=== PATIENT | female | born 1965 | race Caucasian/White ===

== ENCOUNTER 2017-02-18 17:30 | Emergency (ER) | payer MEDICAID ==
[2017-02-18 17:37] VITALS: BMI 25.8
[2017-02-18 17:54] VITALS: BP 118/73; PULSE 54; TEMP 98.2; O2SAT 100
[2017-02-18 18:09] VITALS: RESP 15
[2017-02-18] MEDS ORDERED: Sodium Chloride 0.9% 1,000 ML IV STA (18:22)
[2017-02-18 19:01] LABS: BASO # 0.01 K/mm3 (0.0-2.0); BASO % 0.2 % (0.0-3.0); EOS # 0.2 (0.0-0.7); EOS % 3.4 % (1.5-5.0); GRAN # 2.82 (1.4-6.5); GRAN % 56.9 % (50.0-68.0); HEMATOCRIT 37.6 % (36.0-48.0); LYMPH # 1.7 (1.2-3.4); LYMPH % 33.7 % (22.0-35.0); MEAN CELL VOLUME 85.5 fl (80.0-105.0); MEAN CORPUSCULAR HEMOGLOBIN 28.6 pg (25.0-35.0); MEAN CORPUSCULAR HGB CONC 33.5 g/dl (31.0-37.0); MEAN PLATELET VOLUME 9.3 fl (7.0-11.0); MONO # 0.3 (0.1-0.6); MONO % 5.8 % (1.0-6.0); RED CELL DISTRIBUTION WIDTH 12.9 % (11.5-14.5)
[2017-02-18 19:13] LABS: INR 1.06 (0.93-1.08); PARTIAL THROMBOPLASTIN TIME 28.2 Seconds (23.7-30.8)
[2017-02-18 19:15] LABS: ALB/GLOB RATIO 1.4 (1.1-1.8); ALKALINE PHOSPHATASE 68 U/L (38-126); ALT/SGPT 25 U/L (7-56); AST/SGOT 29 U/L (14-36); BILIRUBIN,TOTAL 0.7 mg/dL (0.2-1.3); BLOOD UREA NITROGEN 17 mg/dL (7-21); CALCIUM 9.3 mg/dL (8.4-10.5); CARBON DIOXIDE 27 mmol/L (21-33); CHLORIDE 106 mmol/L (98-107); D DIMER 0.19 mg/L FEU (0-0.50); GFR AFRICAN-AMERICAN > 60; GLUCOSE,RANDOM 82 mg/dL (70-110); LIPASE 74 U/L (23-300); MAGNESIUM 2.2 mg/dL (1.7-2.2); POTASSIUM 4.3 mmol/L (3.6-5.0); SODIUM 143 mmol/L (132-148); TOTAL PROTEIN 7.4 g/dL (5.8-8.3)
[2017-02-18 19:19] LABS: URINE BILIRUBIN NEGATIVE (NEGATIVE); URINE BLOOD NEGATIVE (NEGATIVE); URINE GLUCOSE (UA) NEGATIVE (NEGATIVE); URINE KETONE NEGATIVE (NEGATIVE); URINE LEUKOCYTE ESTERASE TRACE Leu/uL (NEGATIVE); URINE PROTEIN NEGATIVE mg/dL (<30 mg/dL); URINE UROBILINOGEN 0.2 E.U./dL (<1 E.U./dL)
[2017-02-18 19:22] LABS: URINE APPEARANCE CLEAR (CLEAR); URINE COLOR YELLOW (YELLOW)
[2017-02-18] MEDS ORDERED: Iohexol 350 MG/100 ML VIAL ONE (19:24)
[2017-02-18 19:27] LABS: TROPONIN I 0.01 ng/mL
[2017-02-18 19:27] LABS: URINE RBC NEGATIVE /hpf (0-2)
[2017-02-18 19:28] LABS: URINE BACTERIA FEW (NEG)
--- NOTE | 2017-02-18 20:41 | US ---
EXAM: US Abdomen Complete EXAM DATE/TIME: 02/18/2017 6:23 PM CLINICAL HISTORY: The patient age is 51 years old and is female; Pain; Abdominal pain; Epigastric; Additional info: Upper abd pain Facility exam id and description: Us abd abdomen complete TECHNIQUE: Real-time ultrasound of the abdomen (complete) with image documentation. COMPARISON: No relevant prior studies available. FINDINGS: Liver: The liver is increased in echogenicity, most commonly due to fatty infiltration, but other chronic liver diseases may have a similar appearance. The liver measures 15.0 x 13.4 cm. Gallbladder: Isoechoic sludge is visualized within the gallbladder. No shadowing gallstones are identified. There is no significant gallbladder wall thickening. Common bile duct: The common bile duct measures 4.5 mm in diameter, which is within the normal range. Pancreas: There is suboptimal evaluation of the tail of the pancreas due to bowel gas. No focal abnormality is seen within the visualized head or body of the pancreas. Kidneys: The right kidney measures 9.9 x 3.6 x 4.7 cm. The left kidney measures 9.2 x 4.7 x 5.1 cm. No shadowing stones. No hydronephrosis. Spleen: There is borderline splenomegaly. The spleen measures 12.8 x 4.7 cm and is normal in echotexture. Aorta: The visualized abdominal aorta is patent. There is limited evaluation of the abdominal aorta. Inferior vena cava: The visualized IVC is patent. IMPRESSION: 1. The liver is increased in echogenicity, most commonly due to fatty infiltration, but other chronic liver diseases may have a similar appearance. 2. Isoechoic sludge is visualized within the gallbladder. No shadowing gallstones are identified. 3. There is borderline splenomegaly. 4. Additional findings described above.
--- NOTE | 2017-02-18 20:54 | CT ---
EXAM: CT Abdomen and Pelvis With Intravenous Contrast EXAM DATE/TIME: 02/18/2017 6:22 PM CLINICAL HISTORY: The patient age is 51 years old and is female; Pain; Abdominal pain; Generalized Facility exam id and description: Ct abdpelciv abd pelvis iv contrast only TECHNIQUE: Axial computed tomography images of the abdomen and pelvis with intravenous contrast. All CT scans at this facility use one or more dose reduction techniques, viz.: automated exposure control; ma/kV adjustment per patient size (including targeted exams where dose is matched to indication; i.e. head); or iterative reconstruction technique. Coronal and sagittal reformatted images were created and reviewed. CONTRAST: 95 mL of OMNI 350 administered intravenously. COMPARISON: No relevant prior studies available. FINDINGS: Lower thorax: There is a minimal pericardial effusion. Dependent atelectatic change is identified at the lung bases posteriorly. Mild atelectasis is visualized within the right middle lobe. ABDOMEN: Liver: The liver measures 19.3 cm in length, consistent with mild hepatomegaly. No hepatic mass is visualized. There is mild intrahepatic biliary dilatation. Gallbladder and bile ducts: No discrete gallstones are identified. A cleft is visualized within the gallbladder. Pancreas: Normal contour, without acute peripancreatic stranding. Spleen: There is borderline splenomegaly. The spleen measures 12.2 cm in length. Adrenals: No mass. Kidneys and ureters: An accessory retroaortic left renal vein is visualized. Stomach and bowel: No obstruction. No mucosal thickening. Appendix: No findings to suggest acute appendicitis. PELVIS: Bladder: No mass. Reproductive: Unremarkable as visualized. ABDOMEN and PELVIS: Intraperitoneal space: No free air. Bones/joints: There is a broad-based disc protrusion at L5-S1 with mild narrowing of the thecal sac and narrowing of both lateral recesses. A vacuum disc phenomenon is visualized at L5-S1. Soft tissues: There is mild herniation of fat into the umbilicus. Vasculature: There is no aneurysm or dissection of the aorta. Lymph nodes: There is an enlarged right inguinal lymph node measuring 2.3 cm in length, nonspecific as to etiology. There is no significant retroperitoneal or intrapelvic lymphadenopathy. IMPRESSION: 1. There is borderline splenomegaly. Mild hepatomegaly. 2. There is mild intrahepatic biliary dilatation. Correlation with serum bilirubin is recommended. 3. There is an enlarged right inguinal lymph node measuring 2.3 cm in length, nonspecific as to etiology. 4. There is a broad-based disc protrusion at L5-S1 with mild narrowing of the thecal sac and narrowing of both lateral recesses. 5. There is a minimal pericardial effusion. 6. Incidental/non-acute findings are described above.
--- NOTE | 2017-02-18 21:30 | ED PDOC ---
Arrival/HPI - General Chief Complaint: Shortness Of Breath Time Seen by Provider: 02/18/17 17:37 Historian: Patient - History of Present Illness Narrative History of Present Illness (Text): 02/18/17 21:43 51 y.o. female whose past medical history includes GERD denies any significant past medical history who says that she was at work when she began to develop significant sob suddenly and then developed lower substernal chest pain that was worse with inspiration. The pain and sob worsened, and the patient began to feel that she was about to pass out. She barely got to her pmd's office, who had her sent to the ED for further eval. She says she feels better with oxygen on. No headache or visual changes or n/v; she says she does feel some epigastric pain and had some back pain associated with the epigastric pain earlier. No urinary symptoms or fever. Past Medical History - Infectious Disease Hx of Infectious Diseases: None - Cardiac Hx Cardiac Disorders: No - Pulmonary Hx Respiratory Disorders: No - Neurological Hx Alzheimer's Disease: No - HEENT Hx HEENT Disorder: No - Renal Hx Renal Disorder: No - Endocrine/Metabolic Hx Endocrine Disorders: No - Hematological/Oncological Hx Blood Disorders: Yes Hx Hepatitis C: Yes (hx of) - Integumentary Hx Dermatological Disorder: No - Musculoskeletal/Rheumatological Hx Musculoskeletal Disorders: No - Gastrointestinal Hx Gastrointestinal Disorders: No - Genitourinary/Gynecological Hx Genitourinary Disorders: No - Psychiatric Hx Psychophysiologic Disorder: No Hx Substance Use: No - Anesthesia Hx Anesthesia: No Family/Social History Family/Social History: Unknown Family HX Smoking Status: Never Smoked Hx Alcohol Use: No Hx Substance Use: No Allergies/Home Meds Allergies/Adverse Reactions: Allergies No Known Allergies Allergy (Verified 02/18/17 17:37) Review of Systems - Review of Systems Constitutional: absent: Fevers Eyes: absent: Vision Changes ENT: Normal Respiratory: SOB. absent: Cough Cardiovascular: Chest Pain, Other (near syncope) Gastrointestinal: Abdominal Pain (epigastric pain), Diarrhea (the past three days). absent: Nausea, Vomiting Genitourinary Female: Normal Musculoskeletal: Back Pain (associated with epigastric pain earlier) Skin: Normal Neurological: Dizziness. absent: Headache Endocrine: Normal Hemo/Lymphatic: Normal Psychiatric: Normal Physical Exam Vital Signs Temp Pulse Resp BP Pulse Ox 02/18/17 18:00 15 100 02/18/17 17:54 98.2 F 54 L 18 118/73 100 Temperature: Afebrile Blood Pressure: Normal Pulse: Regular Respiratory Rate: Normal Appearance: Positive for: Well-Appearing, Non-Toxic, Comfortable Pain Distress: None Mental Status: Positive for: Alert and Oriented X 3 - Systems Exam Head: Present: Atraumatic, Normocephalic Pupils: Present: PERRL Conjunctiva: Present: Normal Mouth: Present: Moist Mucous Membranes Pharnyx: Present: Normal. No: ERYTHEMA, EXUDATE Neck: Present: Normal Range of Motion Respiratory/Chest: Present: Clear to Auscultation, Good Air Exchange. No: Respiratory Distress, Accessory Muscle Use Cardiovascular: Present: Regular Rate and Rhythm, Normal S1, S2. No: Murmurs Abdomen: Present: Tenderness (ttp in the epigastric area and RUQ.), Normal Bowel Sounds. No: Distention, Peritoneal Signs Back: Present: Normal Inspection Upper Extremity: Present: Normal Inspection. No: Cyanosis, Edema Lower Extremity: Present: Normal Inspection. No: Edema Neurological: Present: GCS=15, CN II-XII Intact, Speech Normal Skin: Present: Warm, Dry, Normal Color. No: Rashes Psychiatric: Present: Alert, Oriented x 3, Normal Insight, Normal Concentration Medical Decision Making ED Course and Treatment: 02/18/17 21:50 51 y.o. female with chest pain, sob, and near syncope, now feeling better. Differential: ACS vs PE vs vasovagal vs GI etiology Progress Notes: 02/18/2017 20:41 Abdomen Ultrasound IMPRESSION: 1. The liver is increased in echogenicity, most commonly due to fatty infiltration, but other chronic liver diseases may have a similar appearance. 2. Isoechoic sludge is visualized within the gallbladder. No shadowing gallstones are identified. 3. There is borderline splenomegaly. 4. Additional findings described above. Dictator: Yash Martinez MD 02/18/2017 20:53 Abdomen/Pelvis CT IMPRESSION: 1. There is borderline splenomegaly. Mild hepatomegaly. 2. There is mild intrahepatic biliary dilatation. Correlation with serum bilirubin is recommended. 3. There is an enlarged right inguinal lymph node measuring 2.3 cm in length, nonspecific as to etiology. 4. There is a broad-based disc protrusion at L5-S1 with mild narrowing of the thecal sac and narrowing of both lateral recesses. 5. There is a minimal pericardial effusion. 6. Incidental/non-acute findings are described above. Dictator: Yash Martinez MD 02/18/17 22:02 Patient with noted history with imaging results as above; labs are unremarkable. EKG however showing GERRY (with no reciprocal changes), more consistent with possible pericarditis. CE and d-dimer are normal and CXR is uremarkable. Abdominal sono done for abd pain showing sludge but no CBD dilatation. and normal GB wall; no evidence of cholecystitis. CT with intrahepatic dilatation but normal bili; previously treated for hepatitis. Inguinal adenopathy is noted, but patient denies any weight loss, night sweats of fever and not palpable on exam - informed patient of finding to f/u pmd. Herniated disc also noted; patient says has a history of intermittent radicular back pain but no weakness or acute findings. There is however a possible small pericardial effusion on CT scan, which is association with the EKG findings may represent pericarditis. Given her sob, cp, and near syncope earlier, the patient therefore needs an echo and placement on telemetry for further evaluation. She has been informed of this but is refusing to stay in the hospital, despite understanding the risks including heart disease and . She is instead leaving against medical advice, understanding the risks. Will recommend nsaids, given possible nsaids. - Lab Interpretations Lab Results: 02/18/17 18:45 02/18/17 18:45 Lab Results 02/18/17 19:00: Urine Color Yellow, Urine Appearance Clear, Urine pH 6.0, Ur Specific Deary <= 1.005, Urine Protein Negative, Urine Glucose (UA) Negative, Urine Ketones Negative, Urine Blood Negative, Urine Nitrate Negative, Urine Bilirubin Negative, Urine Urobilinogen 0.2, Ur Leukocyte Esterase Trace H, Urine RBC Negative, Urine WBC 2 - 5, Ur Epithelial Cells 4 - 5, Urine Bacteria Few 02/18/17 18:45: Sodium 143, Potassium 4.3, Chloride 106, Carbon Dioxide 27, Anion Gap 14, BUN 17, Creatinine 0.7, Est GFR ( Amer) > 60, Est GFR (Non- Af Amer) > 60, Random Glucose 82, Calcium 9.3, Magnesium 2.2, Total Bilirubin 0.7, AST 29, ALT 25, Alkaline Phosphatase 68, Lactate Dehydrogenase 465, Total Creatine Kinase 89, Troponin I 0.01, NT-Pro-B Natriuret Pep 94.1, Total Protein 7.4, Albumin 4.4, Globulin 3.1, Albumin/Globulin Ratio 1.4, Lipase 74 02/18/17 18:45: PT 11.5, INR 1.06, APTT 28.2, D-Dimer, Quantitative 0.19 02/18/17 18:45: WBC 5.0, RBC 4.40, Hgb 12.6, Hct 37.6, MCV 85.5, MCH 28.6, MCHC 33.5, RDW 12.9, Plt Count 134, MPV 9.3, Gran % 56.9, Lymph % (Auto) 33.7, Metcalfe % (Auto) 5.8, Eos % (Auto) 3.4, Baso % (Auto) 0.2, Gran # 2.82, Lymph # 1.7, Metcalfe # 0.3, Eos # 0.2, Baso # 0.01 - RAD Interpretation Radiology Orders: 02/18/17 18:21 CHEST PORTABLE [RAD] Stat 02/18/17 18:22 ABD & PELVIS IV CONTRAST ONLY [CT] Stat 02/18/17 18:23 ABDOMEN COMPLETE [US] Stat - EKG Interpretation EKG Interpretation (Text): 02/18/17 21:52 sinus francis @ 53 with diffuse j-pt concave GERRY, 1 mm inferiorly and 1/2 mm v2- v5 with MT depression inferiorly and v4-v6; normal intervals, normal axis; no old for comparison. Interpreted by ED Physician: Yes Type: 12 lead EKG - Medication Orders Current Medication Orders: Discontinued Medications Sodium Chloride (Sodium Chloride 0.9%) 1,000 mls @ 999 mls/hr IV .Q1H1M STA Stop: 02/18/17 19:22 Last Admin: 02/18/17 18:49 Dose: 999 mls/hr eMAR Start Stop Document 02/18/17 18:49 AB (Rec: 02/18/17 18:50 AB [id number]) Intravenous Solution Start Date 02/18/17 Start Time 18:49 End Date 02/18/17 End time 19:49 Total Infusion Time 60 Pantoprazole Sodium (Protonix Inj) 40 mg IVP ONCE STA Stop: 02/18/17 18:23 Last Admin: 02/18/17 18:48 Dose: 40 mg IVP Administration Document 02/18/17 18:48 AB (Rec: 02/18/17 18:49 AB [id number]) Charges for Administration # of IVP Administrations 1 Disposition/Present on Arrival - Present on Arrival Any Indicators Present on Arrival: No History of DVT/PE: No History of Uncontrolled Diabetes: No Urinary Catheter: No History of Decub. Ulcer: No History Surgical Site Infection Following: None - Disposition Have Diagnosis and Disposition been Completed?: Yes Diagnosis: Chest pain, Near syncope, Abdominal pain, Inguinal lymphadenopathy, Herniated disc Disposition: AGAINST MEDICAL ADVICE Disposition Time: 21:30 Patient Plan: Other (AMA) Patient Problems: Current Active Problems Problem Status Onset Abdominal pain Acute Chest pain Acute Herniated disc Acute Inguinal lymphadenopathy Acute Near syncope Acute Condition: UNKNOWN Discharge Instructions (ExitCare): Chest Pain (ED) Additional Instructions: You are leaving the hospital against medical advice. You may return to the emergency department at any time. If you choose not to do so, recommend taking ibuprofen and following up with your primary care doctor as soon as possible and arrangement for echocardiogram of your heart as soon as possible. Prescriptions: Ibuprofen [Motrin Tab] 1 tab PO Q8H PRN #15 tab PRN Reason: Pain, Moderate (4-7) Referrals: [facility] [Outside] - Follow up with primary Forms: [facility] ([place])
--- NOTE | 2017-02-19 07:59 | RAD ---
HISTORY: sob, cp COMPARISON: No prior. FINDINGS: LUNGS: No active pulmonary disease. PLEURA: No significant pleural effusion identified, no pneumothorax apparent. CARDIOVASCULAR: Normal. OSSEOUS STRUCTURES: No significant abnormalities. VISUALIZED UPPER ABDOMEN: Normal. OTHER FINDINGS: None. IMPRESSION: No acute cardiopulmonary disease appreciated.
--- NOTE | 2017-02-19 09:14 | CARD ---
APPROVED REPORT EKG Measurement Heart [id number] <Conclusion> Sinus bradycardia with sinus arrhythmia
== END 2017-02-18 22:09 | disposition left against medical advice (07) ==
LOC: ED 17:30
DX: R07.9 Chest pain, unspecified (principal); R55 Syncope and collapse; M51.27 Other intervertebral disc displacement, lumbosacral region; R59.1 Generalized enlarged lymph nodes; R10.9 Unspecified abdominal pain
CPT/HCPCS: 71010; 74177; 76700; 80053; 81001; 82550; 83615; 83690; 83735; 83880; 84484; 85025; 85378; 85610; 85730; 87086; 93005; 96361; 96374; 99285; C9113; J7040; Q9967